=== PATIENT | female | born 2000 | race Caucasian/White ===

== ENCOUNTER 2022-04-24 04:32 | Emergency (ER) | payer BC, SELFPAY ==
[2022-04-24 04:42] VITALS: BP 114/73; PULSE 87; RESP 18; TEMP 37; O2SAT 100
[2022-04-24] MEDS: SODIUM CHLORIDE 0.9% IV 1,000 ML 999 ML IV CONT (04:53)
[2022-04-24] MEDS: METOCLOPRAMIDE HCL INJ 10 MG/2 ML VIAL IV PUSH (04:54)
[2022-04-24] MEDS: diphenhydrAMINE HCl INJ 50 MG/ML VIAL 25 MG IV PUSH (04:54)
[2022-04-24] MEDS: KETOROLAC 30 MG/ML VIAL (*BKC) IV PUSH (04:54)
--- NOTE | 2022-04-24 05:10 | ED.HA ---
HPI - Headache General Chief Complaint: Headache Stated Complaint: migraine Time Seen by Provider: 04/24/22 04:39 History of Present Illness HPI Narrative: Patient is a 22-year-old female who presents ER with headache. Began earlier this evening. Left side above her forehead. Sharp and throbbing. Has history of migraines and this is similar but more intense. She took her report effectiveness without improvement. She is having dry heaves. No fevers or chills or sweats. No trauma. No thunderclap sensation. Review of Systems Review of Systems: All systems reviewed & are unremarkable except as noted in HPI and below Constitutional: Constitutional: Denies chills and Denies fever(s) Eyes: Eyes: Denies change in vision and Reports photophobia ENT: Denies nasal congestion and Denies sore throat Gastrointestinal: Gastrointestinal: Denies abdominal pain, Reports nausea and Reports vomiting Neurologic: Reports headache(s), Denies focal weakness and Denies numbness PMFSH Past Medical History Medical History (Updated 04/24/22 @ 06:05 by Praveen Jones MD) Migraine headache Surgical History Surgical History (Updated 04/24/22 @ 05:12 by Praveen Jones MD) No pertinent past surgical history Social History Social History (Updated 04/24/22 @ 05:12 by Praveen Jones MD) Smoking status: Never smoker Exam Narrative: GENERAL: Uncomfortable-appearing, well-nourished, and in mild distress. HEAD: Normocephalic, atraumatic. EYES: PERRL and EOMI. ENT: Mucous membranes moist. CHEST: Clear to auscultation. No respiratory distress. HEART: Regular rate and rhythm. Normal peripheral pulses. EXTREMITIES: Normal range of motion. No edema. SKIN: Warm, dry, no rash. NEURO: Alert and oriented x3. PSYCH: Normal mood and affect. Course Course Emergency Course: Pain now 2/10 after Reglan/Benadryl/Toradol and IV fluid. Discharge home. Vital Signs Vital signs: Vital Signs Temperature 98.6 F 04/24/22 04:42 Pulse Rate 87 04/24/22 04:42 Respiratory Rate 18 04/24/22 04:42 Blood Pressure 114/73 04/24/22 04:42 Pulse Oximetry 100 04/24/22 04:42 Oxygen Delivery Room Air 04/24/22 04:42 Temperature 98.6 F 04/24/22 04:42 Pulse Rate 87 04/24/22 04:42 Respiratory Rate 18 04/24/22 04:42 Blood Pressure 114/73 04/24/22 04:42 Pulse Oximetry 100 04/24/22 04:42 Oxygen Delivery Room Air 04/24/22 04:42 Discharge Plan Discharge Clinical Impression: Migraine Patient Disposition: Home, Self-Care Condition: Stable Instructions: Migraine Headache (ED) Additional Instructions: Return to the ER if you have fever over 100.4 ?F, you cannot keep down food or water, you have chest pain or shortness of breath, or you have additional concerns. Follow-up/Referrals: PHYSICIAN NOT ON STAFF,NONSTAFF [Primary Care Provider] - 1 Week
[2022-04-24 06:20] VITALS: BP 110/64; PULSE 65; RESP 18; O2SAT 99
== END 2022-04-24 06:21 | disposition home or self-care (01) ==
PROVIDERS: Emergency Provider Emergency Medicine
DX: G43.909 Migraine, unspecified, not intractable, without status migrainosus (principal)
CPT/HCPCS: 96361; 96374; 96375; 99284; J1200; J1885; J2765; J7030

== ENCOUNTER 2022-08-03 05:00 | Emergency (ER) | payer BC, SELFPAY ==
[2022-08-03] VITALS (8 sets, daily range): BP systolic 110–127; BP diastolic 62–89; PULSE 64–83; RESP 20–24; O2SAT 98–100
--- NOTE | 2022-08-03 05:08 | ED.GENADULT ---
HPI - General Adult General Chief complaint: Headache Stated complaint: Migraine Time Seen by Provider: 08/03/22 05:01 History of Present Illness HPI narrative: 22-year-old female with history of migraines presenting the emergency department for evaluation of an uncontrolled migraine. Patient states she gets her migraines approximately twice a month and this migraine started at approximately 10 AM yesterday. Patient states this migraine started typically has a mild headache on the left and has proceeded into a full migraine. Patient does have associated nausea and vomiting. Patient states that this headache is typical for her normal migraines except it is just not responding to the medications today. Patient states that her menstrual cycle is sometimes a trigger. Patient is not currently menstruating. Related Data Allergies Allergy/AdvReac Type Severity Reaction Status Date / Time No Known Allergies Allergy Verified 08/03/22 05:02 Review of Systems Review of Systems: CONSTITUTIONAL: Denies fever, chills, or sweats. EYES: Denies visual changes, redness, or discharge. ENT: Denies rhinorrhea, congestion, sore throat, or otalgia. CARDIOVASCULAR: Denies chest pain, palpitations, or edema. RESPIRATORY: Denies cough or dyspnea. GASTROINTESTINAL: Denies abdominal pain, nausea, vomiting, or diarrhea. GENITOURINARY: Denies dysuria or hematuria. SKIN: Denies rash or itching. MUSCULOSKELETAL: Denies back pain, joint pain, or myalgia. NEUROLOGIC: Migraine headache but denies any associated numbness or weakness PMFSH Past Medical History Medical History (Updated 08/04/22 @ 00:00 by [facility]) Migraine headache Surgical History Surgical History (Updated 04/24/22 @ 05:12 by Praveen Jones MD) No pertinent past surgical history Social History Social History (Updated 04/24/22 @ 05:12 by Praveen Jones MD) Smoking status: Never smoker Exam Narrative: APPEARANCE: Well appearing, uncomfortable from headache HEAD: normocephalic, atraumatic. EYES: PERRLA/EOMI, conjunctivae clear. NOSE: Normal no drainage EARS:TMS clear with good light reflex. NECK: Supple. No adenopathy, no masses. RESPIRATORY: Airway patent, respirations nonlabored. Clear to auscultation bilaterally, no rales, rhonchi, wheezing. CARDIOVASCULAR: Regular rate and rhythm without murmurs rubs or gallops. ABDOMINAL: Soft, nontender, nondistended, normal bowel sounds MUSCULOSKELETAL: Moves all extremities. Strength/ROM intact, No edema, No calf tenderness. NEURO: Alert. Cranial nerves II through XII intact. Grossly intact. Normal strength and reflexes. No drift no ataxia SKIN: Warm, dry. Normal Color Course Course Emergency Course: Patient was treated with IV Toradol, Reglan, Benadryl and a liter of normal saline. Patient's headache is a 3 out of 10 and patient is requesting discharge to home. Patient was encouraged to have close follow-up with her primary care physician. Vital Signs Vital signs: Vital Signs Pulse Rate 64 08/03/22 05:47 Respiratory Rate 22 H 08/03/22 05:47 Blood Pressure 127/89 08/03/22 05:47 Pulse Oximetry 100 08/03/22 05:47 Pulse Rate 71 08/03/22 07:01 Respiratory Rate 20 08/03/22 07:01 Blood Pressure 114/62 08/03/22 07:01 Pulse Oximetry 98 08/03/22 07:01 Medical Decision Making Vital Signs Vital Signs: Vital Signs Pulse Rate 64 08/03/22 05:47 Respiratory Rate 22 H 08/03/22 05:47 Blood Pressure 127/89 08/03/22 05:47 Pulse Oximetry 100 08/03/22 05:47 Pulse Rate 71 08/03/22 07:01 Respiratory Rate 20 08/03/22 07:01 Blood Pressure 114/62 08/03/22 07:01 Pulse Oximetry 98 08/03/22 07:01 Discharge Plan Discharge Clinical Impression: Migraine Patient Disposition: Home, Self-Care Condition: Stable Instructions: Antibiotic Form, Migraine Headache (ED) Additional Instructions: Home medications as directed for your migraines. Have c
[2022-08-03] MEDS: SODIUM CHLORIDE 0.9% IV 1,000 ML 999 ML IV CONT (05:18)
--- NOTE | 2022-08-03 05:18 | PC.NURSE ---
bedside hcg negative at this time.
[2022-08-03] MEDS: diphenhydrAMINE HCl INJ 50 MG/ML VIAL 25 MG IV PUSH ×2 (05:19→05:36)
[2022-08-03] MEDS: METOCLOPRAMIDE HCL INJ 10 MG/2 ML VIAL IV PUSH (05:21)
[2022-08-03] MEDS: KETOROLAC 15 MG/ML VIAL (*BKC) IV PUSH (05:22)
== END 2022-08-03 07:19 | disposition home or self-care (01) ==
PROVIDERS: Emergency Provider Emergency Medicine; PCP Internal Medicine
DX: G43.909 Migraine, unspecified, not intractable, without status migrainosus (principal)
CPT/HCPCS: 96361; 96374; 96375; 99284; J1200; J1885; J2765; J7030